=== PATIENT | male | born 1940 | race Two or more races ===

== ENCOUNTER → 2018-03-29 | Outpatient (REF) | payer MEDICARE ==
[~2018-03-29] MED LIST: ASPI1TAB PO; ASPI325T PO; ATOR1TAB21 PO; BLOOKIT21 XX; GLIP5TAB20 PO; INSUDET SC; NAPR-885 PO; OMEP20CA3 PO; [UNRECOGNIZED DRUG - CODE] XX; [UNRECOGNIZED DRUG - CODE] XX; [UNRECOGNIZED DRUG - OTHER] XX
== END ==
LOC: M LAB REF 17:16
PROVIDERS: ATTEND Physician Assistant
DX: R39.15 Urgency of urination (principal)

== ENCOUNTER → 2018-05-09 | Outpatient (REF) | payer MEDICARE | LOC: M LAB REF 15:48 | PROVIDERS: ATTEND Physician Assistant | DX: R32 Unspecified urinary incontinence (principal) ==

== ENCOUNTER → 2018-10-09 | Outpatient (REF) | payer MEDICARE ==
[~2018-10-09] MED LIST changes: +ASPI-1 PO; -ASPI1TAB PO; -ASPI325T PO; +ASPI81TA26 PO; +OMEP1CAP73 PO; -OMEP20CA3 PO
[2018-10-09 14:20] LABS: FOLATE 13.3 NG/ML
[2018-10-16 10:06] LABS: VITAMIN B1 LEVEL WHOLE BLOOD 131.2 nmol/L (66.5-200.0); VITAMIN B6,PYRIDOXAL PHOSPHATE 6.9 ug/L (5.3-46.7); VITAMIN E(ALPHA TOCOPHEROL) 10.8 mg/L (9.0-29.0); VITAMIN E(GAMMA TOCOPHEROL) 2.3 mg/L (0.5-4.9)
== END ==
LOC: M LABNEURO 11:20
PROVIDERS: ATTEND Psychiatry & Neurology Neurology
DX: R41.3 Other amnesia (principal); D51.9 Vitamin B12 deficiency anemia, unspecified; E51.9 Thiamine deficiency, unspecified

== ENCOUNTER 2019-06-16 19:03 | Emergency (ER) | payer MEDICARE ==
[~2019-06-16] VITALS: Ht 175.3 cm; Wt 90.9 kg
[2019-06-16 19:14] VITALS: BP 141/85
[2019-06-16] MEDS ORDERED: BD P31MI2 (19:20)
[2019-06-16] MEDS ORDERED: OMEP-218 (19:20)
[2019-06-16] MEDS ORDERED: MEMA1TAB3 (19:20)
[2019-06-16] MEDS ORDERED: PARO5TAB (19:20)
[2019-06-16] MEDS ORDERED: DONE10TA90 (19:20)
[2019-06-16] MEDS ORDERED: TRES1INJ2 (19:20)
[2019-06-16] MEDS ORDERED: METF10004 (19:20)
== END 2019-06-16 20:29 | disposition home or self-care (01) ==
LOC: M ED 19:03
DX: E11.9 Type 2 diabetes mellitus without complications (principal); R53.83 Other fatigue; I10 Essential (primary) hypertension; Z79.4 Long term (current) use of insulin; Z79.84 Long term (current) use of oral hypoglycemic drugs; Z79.899 Other long term (current) drug therapy

== ENCOUNTER → 2019-06-20 | Outpatient (REF) | payer MEDICARE ==
[~2019-06-20] MED LIST changes: +BD P31MI2; +DONE10TA90; +MEMA1TAB3; +METF10004; +OMEP-218; +PARO5TAB; +TRES1INJ2
== END ==
LOC: M LAB REF 17:08
PROVIDERS: ATTEND Physician Assistant
DX: R53.83 Other fatigue (principal)

== ENCOUNTER → 2020-01-24 | Outpatient (REF) | payer MEDICARE | LOC: M LAB REF 15:17 | PROVIDERS: ATTEND Family Medicine | DX: R35.0 Frequency of micturition (principal) ==

== ENCOUNTER → 2020-09-11 | Outpatient (CLI) | payer MEDICARE ==
--- NOTE | 2020-09-11 14:46 | REPPI ---
INDICATION: R05 COUGH, SHORTNESS OF BREATH, EVAL FOR LUNG ABNORMALITY COMPARISON: 03/07/2016 TECHNIQUE: PA and lateral. FINDINGS: The mediastinum and cardiac silhouette are normal. The lung blackwell are clear and without acute consolidation, effusion, or pneumothorax. The skeletal structures are intact and normal. IMPRESSION: No acute cardiopulmonary process. <Electronically signed by Rg Zuñiga > 09/11/20 [id number]
== END ==
LOC: M PLAIMG 13:19
PROVIDERS: ATTEND Physician Assistant
DX: R05 Cough (principal)

== ENCOUNTER 2020-10-19 14:41 | Emergency (ER) | payer MEDICARE ==
[~2020-10-19] VITALS: Ht 177.8 cm; Wt 82.0 kg
[2020-10-19 15:47] LABS: BASO # 0.1 10^3/uL (0.0-0.2); BASO % 0.4 % (0.0-1.0); HEMATOCRIT 32.7 % (42.0-52.0); HEMOGLOBIN 10.1 g/dl (13.5-17.5); LYMPH # 1.4 10^3/uL (1.5-5.0); LYMPH % 12.3 % (24.0-44.0); MEAN CORPUSCULAR HEMOGLOBIN 24.8 pg (27.0-33.0); MEAN CORPUSCULAR HGB CONC 30.9 g/dl (32.0-36.5); MEAN CORPUSCULAR VOLUME 80.1 fl (80.0-96.0); MONO # 1.7 10^3/uL (0.0-0.8); MONO % 14.5 % (2.0-8.0); NEUTROPHILS # 8.5 10^3/uL (1.5-8.5); NEUTROPHILS % 72.3 % (36.0-66.0); PLATELET COUNT, AUTOMATED 241 10^3/uL (150-450); RED BLOOD COUNT 4.08 10^6/uL (4.30-6.10)
--- NOTE | 2020-10-19 15:47 | REP ---
INDICATION: CHEST PAIN. COMPARISON: 09/11/2020 latest prior TECHNIQUE: Portable FINDINGS: The technique utilized in obtaining the radiograph has magnified the cardiac silhouette and accentuated the interstitial markings. The superior mediastinal structures are midline. The cardiac silhouette is unremarkable in size, shape, and position. The diaphragmatic surfaces of the lungs are regular, and the costophrenic angles are clear. The pulmonary blackwell are clear. The imaged osseous structures are intact. IMPRESSION: There is no acute cardiopulmonary disease. <Electronically signed by Andrew Sparks > 10/19/20 [id number]
[2020-10-19] MEDS ORDERED: ASPIRIN 81 MG CHEW TABLET PO ONE (16:10)
[2020-10-19] MEDS ORDERED: CLOPIDOGREL 300 MG TAB (PLAVIX) PO STA (16:10)
[2020-10-19 16:22] LABS: INR 1.1; PARTIAL THROMBOPLASTIN TIME 31.5 SECONDS (24.2-38.5); PROTHROMBIN TIME 14.4 SECONDS (12.5-14.3)
[2020-10-19 16:25] LABS: ALBUMIN 3.3 GM/DL (3.2-5.2); ALT/SGPT 28 U/L (12-78); BILIRUBIN,DIRECT 0.3 MG/DL (0.0-0.2); BILIRUBIN,TOTAL 0.8 MG/DL (0.2-1.0); BLOOD UREA NITROGEN 28 MG/DL (7-18); CALCIUM LEVEL 8.7 MG/DL (8.8-10.2); CARBON DIOXIDE LEVEL 24 MEQ/L (21-32); CHLORIDE LEVEL 104 MEQ/L (98-107); CK-MB VALUE MASS 19.7 NG/ML (<3.6); CPK CREATINE PHOSPHOKINASE 620 U/L (39-308); CREATININE FOR GFR 1.06 MG/DL (0.70-1.30); FREE T4 1.33 NG/DL (0.76-1.46); GLOMERULAR FILTRATION RATE > 60.0 (>35); GLUCOSE, FASTING 113 MG/DL (70-100); LIPASE 36 U/L (73-393); MB/CK RELATIVE INDEX 3.18 (< OR =4); POTASSIUM SERUM 4.3 MEQ/L (3.5-5.1); SODIUM LEVEL 140 MEQ/L (136-145); TOTAL PROTEIN 7.1 GM/DL (6.4-8.2)
[2020-10-19 16:28] LABS: WHITE BLOOD COUNT 11.8 10^3/uL (4.0-10.0)
[2020-10-19] MEDS ORDERED: HEPARIN DRIP 25,000 UNITS in IV 1 EA IV SCH (16:40)
[2020-10-19] MEDS ORDERED: HEPARIN SOD (PORCINE) 5000UNITS/ML 1ML VIAL/SYRINGE IV ONE (16:40)
[2020-10-19 17:11] VITALS: BP 104/70
[2020-10-19 17:14] LABS: RSV AMPLIFICATION NEGATIVE (NEGATIVE)
--- NOTE | 2020-10-19 21:37 | ECGEPIP ---
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
--- NOTE | 2020-10-19 21:40 | ECGEPIP ---
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
== END 2020-10-19 17:21 | disposition short-term general hospital (02) ==
LOC: M ED 14:41
DX: I21.3 ST elevation (STEMI) myocardial infarction of unspecified site (principal); R06.02 Shortness of breath; I48.91 Unspecified atrial fibrillation; E11.9 Type 2 diabetes mellitus without complications; I10 Essential (primary) hypertension; F03.90 Unspecified dementia, unspecified severity, without behavioral disturbance, psychotic disturbance, mood disturbance, and anxiety; Z86.73 Personal history of transient ischemic attack (TIA), and cerebral infarction without residual deficits; M13.80 Other specified arthritis, unspecified site; Z88.0 Allergy status to penicillin; Z79.84 Long term (current) use of oral hypoglycemic drugs; Z79.899 Other long term (current) drug therapy
CPT/HCPCS: 71045; 80048; 80076; 82550; 82553; 83690; 84439; 84443; 84484; 85025; 85610; 85730; 87631; 93005; 93041; 94760; 96365; 99285; J1644

== ENCOUNTER 2022-05-16 12:57 | Inpatient (IN) | payer MEDICARE, MEDICAID ==
[~2022-05-16 12:57] MED LIST changes: +OMEP-173; -OMEP-218
[2022-05-16] MEDS ORDERED: DIGOXIN INJ 0.5 MG/2 ML AMP IV STA (13:32)
[2022-05-16] MEDS ORDERED: NS 1,000 ML IV ONE ×3 (13:45→16:10)
[2022-05-16 13:48] LABS: BASO # 0.1 10^3/uL (0.0-0.2); BASO % 0.3 % (0.0-1.0); HEMATOCRIT 42.1 % (42.0-52.0); HEMOGLOBIN 12.3 g/dl (13.5-17.5); LYMPH # 1.7 10^3/uL (1.5-5.0); LYMPH % 11.7 % (24.0-44.0); MEAN CORPUSCULAR HEMOGLOBIN 28.8 pg (27.0-33.0); MEAN CORPUSCULAR HGB CONC 29.2 g/dl (32.0-36.5); MEAN CORPUSCULAR VOLUME 98.6 fl (80.0-96.0); MONO # 0.8 10^3/uL (0.0-0.8); MONO % 5.2 % (2.0-8.0); NEUTROPHILS # 12.3 10^3/uL (1.5-8.5); NEUTROPHILS % 82.3 % (36.0-66.0); PLATELET COUNT, AUTOMATED 247 10^3/uL (150-450); RED BLOOD COUNT 4.27 10^6/uL (4.30-6.10); WHITE BLOOD COUNT 14.9 10^3/uL (4.0-10.0)
[2022-05-16 14:14] LABS: VENOUS BASE EXCESS -15.4 (-2.0-2.0); VENOUS HCO3 13.1 MEQ/L (23.0-27.0); VENOUS O2 SATURATION 58.5 % (60.0-80.0); VENOUS PARTIAL PRESSURE CO2 40.6 mmHg (38.0-50.0); VENOUS PARTIAL PRESSURE O2 36.6 mmHg (30.0-50.0); VENOUS PH 7.128 UNITS (7.330-7.430); VENOUS STANDARD HCO3 12.2 MEQ/L; VENOUS TOTAL CO2 14.4 MEQ/L (24.0-28.0)
[2022-05-16] MEDS ORDERED: SODIUM BICARBONATE 150 MEQ in D5W 1,000 ML IV SCH (14:20)
[2022-05-16 14:50] LABS: CALCIUM LEVEL 10.2 MG/DL (8.3-10.6); CREATININE FOR GFR 7.09 MG/DL (0.70-1.30); GLOMERULAR FILTRATION RATE 7.9 (>35); POTASSIUM SERUM 6.9 MMOL/L (3.5-5.1)
[2022-05-16 14:53] LABS: RSV AMPLIFICATION NEGATIVE (NEGATIVE)
[2022-05-16] MEDS ORDERED: LIDOCAINE 2% 5ML JELLY UROJET TOP ONE (15:05)
[2022-05-16] MEDS ORDERED: GLUCOSE 4GM CHEW TABLET PO PRN (16:50)
[2022-05-16] MEDS ORDERED: DEXTROSE 50% 50ML SYRINGE IV PRN (16:50)
[2022-05-16] MEDS ORDERED: GLUCAGON INJ 1MG VIAL SC PRN (16:50)
[2022-05-16] MEDS: INSULIN LISPRO (NovoLOG) PER UNIT SC SCH ×2 (17:30→21:00)
[2022-05-16] MEDS ORDERED: INSULIN LISPRO (NovoLOG) PER UNIT SC SCH ×2 (17:30→21:00)
[2022-05-16] MEDS ORDERED: ACET500T15 PO (17:44)
[2022-05-16] MEDS ORDERED: METO1TAB7 PO (17:44)
[2022-05-16] MEDS ORDERED: DULC10SU2 PR (17:44)
[2022-05-16] MEDS ORDERED: METF-877 PO (17:44)
[2022-05-16] MEDS ORDERED: SERT50TA29 PO (17:44)
[2022-05-16] MEDS ORDERED: ACET32TAB PO (17:44)
[2022-05-16] MEDS ORDERED: ENSU-12 PO (17:44)
[2022-05-16] MEDS ORDERED: XARE20TA PO (17:44)
[2022-05-16] MEDS ORDERED: LANTINJ4 SC (17:44)
[2022-05-16] MEDS ORDERED: FLEEENE12 PR (17:44)
[2022-05-16] MEDS ORDERED: OMEP-173 PO (17:44)
[2022-05-16] MEDS ORDERED: MIRT-62 PO (17:44)
[2022-05-16] MEDS ORDERED: LISI2.5T9 PO (17:44)
[2022-05-16] MEDS ORDERED: MILKSUS3 PO (17:44)
[2022-05-16] MEDS ORDERED: HOME MED LIST COMPLETE! XX SCH (17:45)
[2022-05-16 18:45] VITALS: BP 80/56
[2022-05-16 19:31] LABS: CALCIUM LEVEL 8.2 MG/DL (8.3-10.6); CREATININE FOR GFR 6.46 MG/DL (0.70-1.30); FOLATE 18.6 NG/ML (>5.4); FREE THYROXINE INDEX 1.7 % (1.4-3.8); GLOMERULAR FILTRATION RATE 8.8 (>35); POTASSIUM SERUM 6.4 MMOL/L (3.5-5.1); T UPTAKE 55.9 % (22.5-37.0); THYROID STIMULATING HORMONE 1.219 uIU/ML (0.55-4.78)
[2022-05-16] MEDS: SODIUM BICARBONATE 150 MEQ in D5W 1,000 ML IV SCH (19:57)
[2022-05-16] MEDS: cefTRIAXone SOD 2 GM in D5W MINI-BAG PLUS 50 ML IV SCH (19:58)
[2022-05-16 20:00] VITALS: BP 92/60
[2022-05-16] MEDS ORDERED: MIRTAZAPINE 15 MG TAB PO SCH (21:00)
[2022-05-16 22:00] VITALS: BP 92/54
[2022-05-17] VITALS (13 sets, daily range): BP systolic 70–90; BP diastolic 40–64
[2022-05-17 00:37] LABS: BLOOD UREA NITROGEN 83 MG/DL (9-23); CALCIUM LEVEL 8.3 MG/DL (8.3-10.6); CARBON DIOXIDE LEVEL < 10.0 MMOL/L (20-31); CHLORIDE LEVEL 120 MMOL/L (98-107); CREATININE FOR GFR 6.41 MG/DL (0.70-1.30); GLOMERULAR FILTRATION RATE 8.9 (>35); GLUCOSE, FASTING 151 MG/DL (74-106); POTASSIUM SERUM 7.2 MMOL/L (3.5-5.1); SODIUM LEVEL 152 MMOL/L (136-145)
[2022-05-17] MEDS ORDERED: SODIUM BICARBONATE 8.4% INJ 50ML SYRINGE IV STA (00:48)
[2022-05-17] MEDS ORDERED: HumuLIN R (REGULAR) INSULIN (NovoLIN R) **100U/ML** PER UNIT IV STA (00:48)
[2022-05-17] MEDS ORDERED: DEXTROSE 50% 50ML SYRINGE IV STA ×2 (00:48→01:02)
[2022-05-17] MEDS ORDERED: SODIUM CHLORIDE 0.9% 1000ML IV ONE ×4 (00:55→15:55)
[2022-05-17] MEDS ORDERED: OLANZapine INTRAMUSCULAR 10MG VIAL IM ONE (01:00)
[2022-05-17] MEDS ORDERED: HYDROCORTISONE 100MG/2ML VIAL IV ONE (01:00)
[2022-05-17] MEDS ORDERED: DIGOXIN INJ 0.5 MG/2 ML AMP IV STA (01:11)
[2022-05-17] MEDS ORDERED: CALCIUM GLUCONATE 1,000 MG in D5W MINI-BAG PLUS 100 ML IV ONE (02:00)
[2022-05-17] MEDS ORDERED: ALBUTEROL SULFATE 2.5MG/0.5ML INH NEB SOLN NEB ONE (02:00)
[2022-05-17] MEDS: SODIUM BICARBONATE 150 MEQ in D5W 1,000 ML IV SCH ×3 (02:31→11:51)
[2022-05-17 05:50] LABS: HEMATOCRIT 33.9 % (42.0-52.0); MEAN CORPUSCULAR HEMOGLOBIN 29.2 pg (27.0-33.0); MEAN CORPUSCULAR HGB CONC 29.5 g/dl (32.0-36.5); MEAN CORPUSCULAR VOLUME 99.1 fl (80.0-96.0); PLATELET COUNT, AUTOMATED 148 10^3/uL (150-450); RED BLOOD COUNT 3.42 10^6/uL (4.30-6.10); WHITE BLOOD COUNT 9.1 10^3/uL (4.0-10.0)
[2022-05-17 06:16] LABS: ALBUMIN 2.8 G/DL (3.2-5.2); BILIRUBIN,TOTAL 0.2 MG/DL (0.3-1.2); CALCIUM LEVEL 8.1 MG/DL (8.3-10.6); CREATININE FOR GFR 5.86 MG/DL (0.70-1.30); GLOMERULAR FILTRATION RATE 9.9 (>35); MAGNESIUM LEVEL 1.7 MG/DL (1.8-2.4); POTASSIUM SERUM 4.8 MMOL/L (3.5-5.1); TOTAL PROTEIN 6.4 G/DL (5.7-8.2)
[2022-05-17] MEDS ORDERED: AMIODARONE HCL 150 MG in IV 1 EA IV ONE (06:30)
[2022-05-17] MEDS ORDERED: AMIODARONE HCL 360 MG in IV 1 EA IV SCH (06:40)
[2022-05-17] MEDS: INSULIN LISPRO (NovoLOG) PER UNIT SC SCH ×4 (07:30→20:26)
[2022-05-17] MEDS: SERTRALINE HCL 50 MG TAB PO SCH (08:43)
[2022-05-17] MEDS ORDERED: APIXABAN 2.5 MG TAB (ELIQUIS) PO SCH (09:00)
[2022-05-17] MEDS: AMIODARONE HCL 360 MG in IV 1 EA IV SCH (11:51)
[2022-05-17 12:47] LABS: CALCIUM LEVEL 7.6 MG/DL (8.3-10.6); CREATININE FOR GFR 5.63 MG/DL (0.70-1.30); GLOMERULAR FILTRATION RATE 10.3 (>35); POTASSIUM SERUM 4.1 MMOL/L (3.5-5.1)
[2022-05-17] MEDS ORDERED: HEPARIN SOD (PORCINE) 5000UNITS/ML 1ML VIAL/SYRINGE IV ONE (15:20)
[2022-05-17] MEDS ORDERED: HEPARIN SOD (PORCINE) 5000UNITS/ML 1ML VIAL/SYRINGE IV PRN (15:20)
[2022-05-17] MEDS ORDERED: HEPARIN DRIP 25,000 UNITS in IV 1 EA IV SCH (15:20)
[2022-05-17] MEDS ORDERED: GLUCAGON INJ 1MG VIAL SC PRN (15:55)
[2022-05-17] MEDS ORDERED: DEXTROSE 50% 50ML SYRINGE IV PRN (15:55)
[2022-05-17] MEDS ORDERED: GLUCOSE 4GM CHEW TABLET PO PRN (15:55)
[2022-05-17 16:11] LABS: HEMATOCRIT 29.8 % (42.0-52.0); HEMOGLOBIN 9.3 g/dl (13.5-17.5); MEAN CORPUSCULAR HEMOGLOBIN 28.8 pg (27.0-33.0); MEAN CORPUSCULAR HGB CONC 31.2 g/dl (32.0-36.5); MEAN CORPUSCULAR VOLUME 92.3 fl (80.0-96.0); PLATELET COUNT, AUTOMATED 141 10^3/uL (150-450); RED BLOOD COUNT 3.23 10^6/uL (4.30-6.10); WHITE BLOOD COUNT 7.7 10^3/uL (4.0-10.0)
[2022-05-17] MEDS ORDERED: RIVAROXABAN 20MG TAB (XARELTO) PO SCH (18:00)
[2022-05-17] MEDS: cefTRIAXone SOD 2 GM in D5W MINI-BAG PLUS 50 ML IV SCH (18:33)
[2022-05-17 18:58] LABS: CALCIUM LEVEL 7.7 MG/DL (8.3-10.6); CREATININE FOR GFR 5.42 MG/DL (0.70-1.30); GLOMERULAR FILTRATION RATE 10.8 (>35)
[2022-05-18] VITALS (8 sets, daily range): BP systolic 86–125; BP diastolic 60–77
[2022-05-18] MEDS: AMIODARONE HCL 360 MG in IV 1 EA IV SCH (00:23)
[2022-05-18] MEDS: SODIUM BICARBONATE 150 MEQ in D5W 1,000 ML IV SCH (01:07)
[2022-05-18 01:09] LABS: CALCIUM LEVEL 7.8 MG/DL (8.3-10.6); CREATININE FOR GFR 4.93 MG/DL (0.70-1.30); GLOMERULAR FILTRATION RATE 12.1 (>35); POTASSIUM SERUM 3.6 MMOL/L (3.5-5.1)
[2022-05-18] MEDS ORDERED: D5W/0.45% SODIUM CHLORIDE 1,000 ML IV SCH (01:45)
[2022-05-18 03:38] LABS: BASO % 0.4 % (0.0-1.0); EOS % 0.6 % (0.0-3.0); HEMATOCRIT 30.3 % (42.0-52.0); HEMOGLOBIN 9.5 g/dl (13.5-17.5); LYMPH # 1.2 10^3/uL (1.5-5.0); LYMPH % 22.5 % (24.0-44.0); MEAN CORPUSCULAR HGB CONC 31.4 g/dl (32.0-36.5); MEAN CORPUSCULAR VOLUME 92.4 fl (80.0-96.0); MONO # 0.4 10^3/uL (0.0-0.8); MONO % 7.8 % (2.0-8.0); NEUTROPHILS # 3.5 10^3/uL (1.5-8.5); NEUTROPHILS % 67.7 % (36.0-66.0); PLATELET COUNT, AUTOMATED 127 10^3/uL (150-450); RED BLOOD COUNT 3.28 10^6/uL (4.30-6.10); WHITE BLOOD COUNT 5.2 10^3/uL (4.0-10.0)
[2022-05-18 05:15] LABS: ALBUMIN 2.5 G/DL (3.2-5.2); BILIRUBIN,TOTAL 0.2 MG/DL (0.3-1.2); CALCIUM LEVEL 7.4 MG/DL (8.3-10.6); CREATININE FOR GFR 4.7 MG/DL (0.70-1.30); CREATININE FOR GFR 4.71 MG/DL (0.70-1.30); GLOMERULAR FILTRATION RATE 12.7 (>35); MAGNESIUM LEVEL 1.5 MG/DL (1.8-2.4); POTASSIUM SERUM 3.3 MMOL/L (3.5-5.1); POTASSIUM SERUM 3.4 MMOL/L (3.5-5.1); TOTAL PROTEIN 5.9 G/DL (5.7-8.2)
[2022-05-18] MEDS ORDERED: POTASSIUM CHLORIDE 10MEQ SR TABLET PO ONE (07:35)
[2022-05-18] MEDS ORDERED: KCL 10MEQ/100ML SWI (KRUN) 10 MEQ in IV 1 EA IV ONE (08:00)
[2022-05-18 08:37] LABS: CALCIUM LEVEL 7.6 MG/DL (8.3-10.6); CREATININE FOR GFR 4.47 MG/DL (0.70-1.30); GLOMERULAR FILTRATION RATE 13.5 (>35); POTASSIUM SERUM 3.5 MMOL/L (3.5-5.1)
[2022-05-18] MEDS ORDERED: MAGNESIUM OXIDE 400MG TAB (MAG-OX) PO ONE (09:40)
[2022-05-18] MEDS: SERTRALINE HCL 50 MG TAB PO SCH (10:03)
[2022-05-18] MEDS: INSULIN LISPRO (NovoLOG) PER UNIT SC SCH ×4 (10:04→20:40)
[2022-05-18] MEDS: APIXABAN 2.5 MG TAB (ELIQUIS) PO SCH ×2 (10:28→20:40)
[2022-05-18] MEDS: AMIODARONE 200 MG TAB (PACERONE) PO SCH (10:29)
[2022-05-18] MEDS: D5W 1,000 ML IV SCH ×2 (11:02→20:07)
[2022-05-18 12:00] LABS: CALCIUM LEVEL 7.7 MG/DL (8.3-10.6); CREATININE FOR GFR 4.19 MG/DL (0.70-1.30); GLOMERULAR FILTRATION RATE 14.5 (>35); POTASSIUM SERUM 3.6 MMOL/L (3.5-5.1)
[2022-05-18 16:18] LABS: CALCIUM LEVEL 7.8 MG/DL (8.3-10.6); CREATININE FOR GFR 3.87 MG/DL (0.70-1.30); GLOMERULAR FILTRATION RATE 15.9 (>35); POTASSIUM SERUM 3.7 MMOL/L (3.5-5.1)
[2022-05-18] MEDS: cefTRIAXone SOD 2 GM in D5W MINI-BAG PLUS 50 ML IV SCH (18:24)
[2022-05-18 18:38] LABS: CALCIUM LEVEL 7.6 MG/DL (8.3-10.6); CREATININE FOR GFR 3.68 MG/DL (0.70-1.30); GLOMERULAR FILTRATION RATE 16.9 (>35); POTASSIUM SERUM 3.5 MMOL/L (3.5-5.1)
[2022-05-18] MEDS: MYCOLOG CREAM 15GM (NYSTATIN/TRIAMCINOLONE) TOP SCH (20:40)
[2022-05-18 21:15] LABS: CALCIUM LEVEL 7.4 MG/DL (8.3-10.6); CREATININE FOR GFR 3.61 MG/DL (0.70-1.30); GLOMERULAR FILTRATION RATE 17.3 (>35); POTASSIUM SERUM 3.3 MMOL/L (3.5-5.1)
[2022-05-19] VITALS (7 sets, daily range): BP systolic 98–109; BP diastolic 59–71
[2022-05-19 00:07] LABS: CALCIUM LEVEL 7.3 MG/DL (8.3-10.6); CREATININE FOR GFR 3.45 MG/DL (0.70-1.30); GLOMERULAR FILTRATION RATE 18.2 (>35); POTASSIUM SERUM 3.1 MMOL/L (3.5-5.1)
[2022-05-19] MEDS ORDERED: POTASSIUM CHLORIDE 10% LIQ 20MEQ/15ML UDC PO ONE (03:00)
[2022-05-19] MEDS: D5W 1,000 ML IV SCH ×3 (03:26→21:41)
[2022-05-19 06:11] LABS: BASO % 0.4 % (0.0-1.0); EOS # 0.1 10^3/uL (0.0-0.5); EOS % 2.9 % (0.0-3.0); HEMATOCRIT 30.2 % (42.0-52.0); HEMOGLOBIN 9.3 g/dl (13.5-17.5); LYMPH % 21.3 % (24.0-44.0); MEAN CORPUSCULAR HGB CONC 30.8 g/dl (32.0-36.5); MEAN CORPUSCULAR VOLUME 94.1 fl (80.0-96.0); MONO # 0.3 10^3/uL (0.0-0.8); MONO % 7.5 % (2.0-8.0); NEUTROPHILS # 3.1 10^3/uL (1.5-8.5); NEUTROPHILS % 67.2 % (36.0-66.0); PLATELET COUNT, AUTOMATED 108 10^3/uL (150-450); RED BLOOD COUNT 3.21 10^6/uL (4.30-6.10); WHITE BLOOD COUNT 4.6 10^3/uL (4.0-10.0)
[2022-05-19 06:56] LABS: ALBUMIN 2.4 G/DL (3.2-5.2); BILIRUBIN,TOTAL 0.3 MG/DL (0.3-1.2); CALCIUM LEVEL 7.5 MG/DL (8.3-10.6); CREATININE FOR GFR 3.09 MG/DL (0.70-1.30); GLOMERULAR FILTRATION RATE 20.7 (>35); MAGNESIUM LEVEL 1.4 MG/DL (1.8-2.4); POTASSIUM SERUM 3.5 MMOL/L (3.5-5.1); TOTAL PROTEIN 5.6 G/DL (5.7-8.2)
[2022-05-19] MEDS ORDERED: MAGNESIUM OXIDE 400MG TAB (MAG-OX) PO ONE (07:20)
[2022-05-19] MEDS: INSULIN LISPRO (NovoLOG) PER UNIT SC SCH ×4 (08:14→21:00)
[2022-05-19] MEDS: AMIODARONE 200 MG TAB (PACERONE) PO SCH (09:52)
[2022-05-19] MEDS: APIXABAN 2.5 MG TAB (ELIQUIS) PO SCH ×2 (09:53→21:05)
[2022-05-19] MEDS: SERTRALINE HCL 50 MG TAB PO SCH (09:53)
[2022-05-19] MEDS: MYCOLOG CREAM 15GM (NYSTATIN/TRIAMCINOLONE) TOP SCH ×2 (09:54→21:00)
[2022-05-19] MEDS: cefTRIAXone SOD 2 GM in D5W MINI-BAG PLUS 50 ML IV SCH (18:48)
[2022-05-20] VITALS: BP 122/78
[2022-05-20 04:00] VITALS: BP 105/73
[2022-05-20 04:49] LABS: EOS # 0.2 10^3/uL (0.0-0.5); EOS % 4.1 % (0.0-3.0); HEMATOCRIT 29.9 % (42.0-52.0); HEMOGLOBIN 9.2 g/dl (13.5-17.5); LYMPH # 1.1 10^3/uL (1.5-5.0); LYMPH % 27.8 % (24.0-44.0); MEAN CORPUSCULAR HEMOGLOBIN 29.6 pg (27.0-33.0); MEAN CORPUSCULAR HGB CONC 30.8 g/dl (32.0-36.5); MEAN CORPUSCULAR VOLUME 96.1 fl (80.0-96.0); MONO # 0.3 10^3/uL (0.0-0.8); MONO % 8.3 % (2.0-8.0); NEUTROPHILS # 2.4 10^3/uL (1.5-8.5); NEUTROPHILS % 57.8 % (36.0-66.0); RED BLOOD COUNT 3.11 10^6/uL (4.30-6.10); WHITE BLOOD COUNT 4.1 10^3/uL (4.0-10.0)
[2022-05-20 04:50] LABS: PLATELET COUNT, AUTOMATED 95 10^3/uL (150-450)
[2022-05-20 05:17] LABS: ALBUMIN 2.3 G/DL (3.2-5.2); BILIRUBIN,TOTAL 0.4 MG/DL (0.3-1.2); CALCIUM LEVEL 7.2 MG/DL (8.3-10.6); CREATININE FOR GFR 2.08 MG/DL (0.70-1.30); GLOMERULAR FILTRATION RATE 32.6 (>35); MAGNESIUM LEVEL 1.4 MG/DL (1.8-2.4); POTASSIUM SERUM 3.2 MMOL/L (3.5-5.1); TOTAL PROTEIN 5.2 G/DL (5.7-8.2)
[2022-05-20] MEDS: D5W 1,000 ML IV SCH (05:52)
[2022-05-20] MEDS ORDERED: MAGNESIUM OXIDE 400MG TAB (MAG-OX) PO ONE (07:30)
[2022-05-20] MEDS ORDERED: POTASSIUM CHLORIDE 10MEQ SR TABLET PO ONE (07:30)
[2022-05-20 08:10] VITALS: BP 100/60
[2022-05-20] MEDS: AMIODARONE 200 MG TAB (PACERONE) PO SCH (09:12)
[2022-05-20] MEDS: APIXABAN 2.5 MG TAB (ELIQUIS) PO SCH ×2 (09:13→20:17)
[2022-05-20] MEDS: SERTRALINE HCL 50 MG TAB PO SCH (09:13)
[2022-05-20] MEDS: INSULIN LISPRO (NovoLOG) PER UNIT SC SCH ×4 (09:14→20:17)
[2022-05-20] MEDS: MYCOLOG CREAM 15GM (NYSTATIN/TRIAMCINOLONE) TOP SCH ×2 (09:14→20:17)
[2022-05-20] MEDS: KCL 20MEQ IN D5W 1000ML 1,000 ML IV SCH ×2 (09:44→23:39)
[2022-05-20 12:32] VITALS: BP 102/71
[2022-05-20 16:07] VITALS: BP 111/80
[2022-05-20] MEDS: cefTRIAXone SOD 2 GM in D5W MINI-BAG PLUS 50 ML IV SCH (17:57)
[2022-05-20 19:48] VITALS: BP 102/70
[2022-05-21] VITALS: BP 117/82
[2022-05-21 04:00] VITALS: BP 108/63
[2022-05-21 04:56] LABS: FOLATE 10.94 NG/ML (>5.4)
[2022-05-21 04:57] LABS: ALBUMIN 2.5 G/DL (3.2-5.2); BASO % 0.4 % (0.0-1.0); BILIRUBIN,TOTAL 0.4 MG/DL (0.3-1.2); CALCIUM LEVEL 7.5 MG/DL (8.3-10.6); CREATININE FOR GFR 1.54 MG/DL (0.70-1.30); EOS # 0.1 10^3/uL (0.0-0.5); EOS % 2.3 % (0.0-3.0); GLOMERULAR FILTRATION RATE 46.2 (>35); HEMATOCRIT 31.3 % (42.0-52.0); HEMOGLOBIN 9.9 g/dl (13.5-17.5); LYMPH # 0.9 10^3/uL (1.5-5.0); LYMPH % 18.5 % (24.0-44.0); MAGNESIUM LEVEL 1.4 MG/DL (1.8-2.4); MEAN CORPUSCULAR HEMOGLOBIN 29.6 pg (27.0-33.0); MEAN CORPUSCULAR HGB CONC 31.6 g/dl (32.0-36.5); MEAN CORPUSCULAR VOLUME 93.4 fl (80.0-96.0); MONO # 0.4 10^3/uL (0.0-0.8); MONO % 8.2 % (2.0-8.0); NEUTROPHILS # 3.4 10^3/uL (1.5-8.5); NEUTROPHILS % 69.8 % (36.0-66.0); POTASSIUM SERUM 3.7 MMOL/L (3.5-5.1); RED BLOOD COUNT 3.35 10^6/uL (4.30-6.10); TOTAL PROTEIN 5.8 G/DL (5.7-8.2); WHITE BLOOD COUNT 4.9 10^3/uL (4.0-10.0)
[2022-05-21 05:22] LABS: PLATELET COUNT, AUTOMATED 99 10^3/uL (150-450)
[2022-05-21] MEDS ORDERED: MAGNESIUM OXIDE 400MG TAB (MAG-OX) PO ONE (07:15)
[2022-05-21 07:54] VITALS: BP 109/70
[2022-05-21] MEDS: SERTRALINE HCL 50 MG TAB PO SCH (08:18)
[2022-05-21] MEDS: APIXABAN 2.5 MG TAB (ELIQUIS) PO SCH (08:19)
[2022-05-21] MEDS: AMIODARONE 200 MG TAB (PACERONE) PO SCH (08:19)
[2022-05-21] MEDS: INSULIN LISPRO (NovoLOG) PER UNIT SC SCH (08:19)
[2022-05-21] MEDS: MYCOLOG CREAM 15GM (NYSTATIN/TRIAMCINOLONE) TOP SCH (08:20)
[2022-05-21] MEDS ORDERED: LANTINJ4 SC (08:53)
[2022-05-21] MEDS ORDERED: AMIO200T49 PO (08:53)
[2022-05-21] MEDS ORDERED: ELIQ5TAB PO (08:53)
[2022-05-21 11:14] LABS: CALCIUM LEVEL 7.7 MG/DL (8.3-10.6); CREATININE FOR GFR 1.4 MG/DL (0.70-1.30); GLOMERULAR FILTRATION RATE 51.5 (>35); POTASSIUM SERUM 3.8 MMOL/L (3.5-5.1)
== END 2022-05-21 11:58 | DRG 682 ==
LOC: M ED 12:57 → M ED INP 16:50 → ENRESERV 17:35 → M PCU 18:45
PROVIDERS: ADMIT Family Medicine; ATTEND Family Medicine
DX: N17.9 Acute kidney failure, unspecified (principal); G93.41 Metabolic encephalopathy; E87.0 Hyperosmolality and hypernatremia; N28.0 Ischemia and infarction of kidney; N39.0 Urinary tract infection, site not specified; E87.29 Other acidosis; R82.71 Bacteriuria; E87.5 Hyperkalemia; I10 Essential (primary) hypertension; F03.90 Unspecified dementia, unspecified severity, without behavioral disturbance, psychotic disturbance, mood disturbance, and anxiety; I48.91 Unspecified atrial fibrillation; E11.9 Type 2 diabetes mellitus without complications; M19.90 Unspecified osteoarthritis, unspecified site; Z88.0 Allergy status to penicillin; Z79.899 Other long term (current) drug therapy; Z79.4 Long term (current) use of insulin